=== PATIENT | male | born 1975 | race Caucasian/White ===

== ENCOUNTER 2017-04-29 06:34 | Inpatient (IN) | payer MEDICAID, OTHER ==
[~2017-04-29] VITALS: Ht 175.3 cm; Wt 81.4 kg
[~2017-04-29 06:34] MED LIST: ASEN5TAB6 SL; BACL10TA PO; DIPH50 PO; GABA-318 PO; NICO21T TD; OMEP40CA12 PO
[2017-04-29] MEDS ORDERED: BACL10TA PO (06:51)
[2017-04-29] MEDS ORDERED: OLAN10TA3 PO (06:51)
[2017-04-29 07:34] LABS: BASOPHILS % (AUTO) 0.9 % (0.0-2.0); EOSINOPHILS % (AUTO) 0.3 % (1.0-6.0); HEMATOCRIT 40.2 % (41-53); HEMOGLOBIN 13.9 g/dL (13.5-17.5); LYMPHOCYTES # (AUTO) 0.9 K/uL (1.0-4.8); LYMPHOCYTES % (AUTO) 8.8 % (22.0-44.0); MEAN CORPUSCULAR HEMOGLOBIN 28.9 pg (26.0-34.0); MEAN CORPUSCULAR HGB CONC 34.6 G/dL (31.0-37.0); MEAN CORPUSCULAR VOLUME 84 fL (80-100); MONOCYTES # (AUTO) 0.6 K/uL (0.1-1.0); MONOCYTES % (AUTO) 6.1 % (2.0-9.0); NEUTROPHILS # (AUTO) 8.4 K/uL (1.8-7.7); NEUTROPHILS % (AUTO) 83.9 % (40.0-70.0); PLATELET COUNT (AUTO) 295 K/uL (150-450); RED BLOOD CELL COUNT(AUTO) 4.81 MIL/uL (4.50-5.90); RED CELL DISTRIBUTION WIDTH 14.3 % (11.5-14.5)
[2017-04-29 07:57] LABS: ANION GAP 15 mmol/L (8-16); CALCIUM, TOTAL 8.8 mg/dL (8.8-10.5); CARBON DIOXIDE 23 mmol/L (22-29); CHLORIDE 101 mmol/L (98-107); CREATININE 0.86 mg/dL (0.60-1.30); GLOMERULAR FILTR. RATE CALC > 60 mL/min (>60); GLUCOSE,RANDOM 90 mg/dL (70-110); POTASSIUM 3.1 mmol/L (3.5-5.1); SODIUM SERUM 139 mmol/L (136-145); UREA NITROGEN, BLOOD 12 mg/dL (7-18)
[2017-04-29] MEDS ORDERED: HALOPERIDOL LACTATE 5 MG/ML VIAL IM ONE (08:00)
[2017-04-29] MEDS ORDERED: DiphenhydrAMINE HCL 50 MG/ML VIAL IM ONE (08:00)
[2017-04-29] MEDS ORDERED: LORazepam 2 MG/ML VIAL IVP ONE (08:00)
[2017-04-29 08:03] LABS: ALANINE AMINOTRANSFERASE 145 U/L (12-78); ALKALINE PHOSPHATASE 88 U/L (46-116); ASPARTATE AMINOTRANSFERASE 61 U/L (15-37); BILIRUBIN,TOTAL 0.9 mg/dL (0.1-1.0)
[2017-04-29] MEDS ORDERED: LORazepam 2 MG/ML VIAL IM ONE (08:15)
[2017-04-29 08:39] LABS: CHOL/HDL RATIO 3.1 (4.2-7.3); CHOLESTEROL 185 mg/dL (131-200); HDL CHOLESTEROL 59 mg/dL (40-60); LDL CHOL (CALC.) 119 mg/dL (0-130); TRIGLYCERIDES 34 mg/dL (15-150)
[2017-04-29 08:40] LABS: FREE T4 (FREE THYROXINE) 1.58 ng/dL (0.76-1.46); THYROID STIMULATING HORMONE 0.46 uIU/mL (0.36-3.74)
[2017-04-29] MEDS ORDERED: POTASSIUM CHLORIDE 20 MEQ ER TABLET PO ONE (12:00)
[2017-04-29 13:59] VITALS: BP 148/78
[2017-04-29] MEDS ORDERED: POTASSIUM CHLORIDE 10% 40 MEQ/30 ML LIQUID UDCUP PO ONE (14:00)
[2017-04-29] MEDS ORDERED: ONDANSETRON HCL 4 MG TABLET PO PRN (17:30)
[2017-04-29] MEDS ORDERED: CloNIDine HCL 0.1 MG TABLET PO PRN (17:30)
[2017-04-29] MEDS ORDERED: PETROLATUM,WHITE 71 GM JELLY TP PRN (17:30)
[2017-04-29] MEDS ORDERED: MAG HYDROX/AL HYDROX/SIMETH ES 30 ML SUSPENSION UDCUP PO PRN (17:30)
[2017-04-29] MEDS ORDERED: ALBUTEROL SULFATE HFA 90 MCG/PUFF 8 GM INHALER IH PRN (17:30)
[2017-04-29] MEDS ORDERED: BACITRACIN 28.4 GM OINTMENT TP PRN (17:30)
[2017-04-29] MEDS ORDERED: BENZOCAINE/MENTHOL LOZENGE MM PRN (17:30)
[2017-04-29] MEDS ORDERED: MAGNESIUM HYDROXIDE SUSPENSION 30 ML UDCUP PO PRN (17:30)
[2017-04-29] MEDS ORDERED: LOPERAMIDE HCL 2 MG CAPSULE PO PRN (17:30)
[2017-04-29] MEDS ORDERED: ACETAMINOPHEN 325 MG TABLET PO PRN (17:30)
[2017-04-29 18:40] VITALS: BP 131/64
[2017-04-29] MEDS: IBUPROFEN 600 MG TABLET PO PRN (19:40)
[2017-04-29] MEDS: HALOPERIDOL 5 MG TABLET PO PRN (19:40)
[2017-04-29] MEDS: LORazepam 2 MG TABLET PO PRN (19:40)
[2017-04-30] MEDS: ZOLPIDEM TARTRATE 10 MG TABLET PO PRN ×2 (02:45→21:17)
[2017-04-30 03:02] VITALS: BP 117/69
[2017-04-30 08:12] VITALS: BP 131/70
[2017-04-30 08:26] LABS: ANION GAP 13 mmol/L (8-16); CALCIUM, TOTAL 8.7 mg/dL (8.8-10.5); CARBON DIOXIDE 24 mmol/L (22-29); CHLORIDE 101 mmol/L (98-107); CREATININE 0.76 mg/dL (0.60-1.30); GLOMERULAR FILTR. RATE CALC > 60 mL/min (>60); GLUCOSE,RANDOM 80 mg/dL (70-110); POTASSIUM 3.7 mmol/L (3.5-5.1); SODIUM SERUM 138 mmol/L (136-145); UREA NITROGEN, BLOOD 15 mg/dL (7-18)
[2017-04-30] MEDS: OMEPRAZOLE 20 MG CAPSULE PO SCH (08:46)
[2017-04-30] MEDS: DOCUSATE SODIUM 100 MG CAPSULE PO SCH (08:46)
[2017-04-30] MEDS: NICOTINE 21 MG/24 HOUR PATCH TD SCH (08:46)
[2017-04-30] MEDS: HALOPERIDOL 5 MG TABLET PO PRN ×2 (08:46→16:21)
[2017-04-30] MEDS: LORazepam 2 MG TABLET PO PRN ×2 (08:46→16:21)
[2017-04-30] MEDS: IBUPROFEN 600 MG TABLET PO PRN (09:05)
[2017-04-30] MEDS: OLANZapine 10 MG TABLET PO SCH (21:17)
[2017-05-01 06:49] VITALS: BP 119/70
[2017-05-01 08:25] VITALS: BP 113/62
[2017-05-01] MEDS: NICOTINE 21 MG/24 HOUR PATCH TD SCH (08:25)
[2017-05-01] MEDS: DOCUSATE SODIUM 100 MG CAPSULE PO SCH (08:25)
[2017-05-01] MEDS: OMEPRAZOLE 20 MG CAPSULE PO SCH (08:25)
[2017-05-01] MEDS: IBUPROFEN 600 MG TABLET PO PRN (08:25)
[2017-05-01 09:25] VITALS: BP 118/99
[2017-05-01] MEDS: GABAPENTIN 400 MG CAPSULE PO SCH ×3 (10:12→16:22)
[2017-05-01 10:25] VITALS: BP 118/72
[2017-05-01] MEDS: LORazepam 2 MG TABLET PO PRN (16:22)
[2017-05-01 16:34] VITALS: BP 116/77
[2017-05-01] MEDS: OLANZapine 10 MG TABLET PO SCH (20:03)
[2017-05-01] MEDS: LevETIRAcetam 500 MG TABLET PO SCH (20:04)
[2017-05-01] MEDS: ZOLPIDEM TARTRATE 10 MG TABLET PO PRN (20:04)
[2017-05-02 06:51] VITALS: BP 107/69
[2017-05-02 08:13] VITALS: BP 108/65
[2017-05-02] MEDS: NICOTINE 21 MG/24 HOUR PATCH TD SCH (09:00)
[2017-05-02] MEDS: DOCUSATE SODIUM 100 MG CAPSULE PO SCH (09:01)
[2017-05-02] MEDS: OMEPRAZOLE 20 MG CAPSULE PO SCH (09:01)
[2017-05-02] MEDS: GABAPENTIN 100 MG CAPSULE PO SCH ×3 (09:01→16:04)
[2017-05-02] MEDS: GABAPENTIN 400 MG CAPSULE PO SCH ×3 (09:01→16:03)
[2017-05-02] MEDS: LevETIRAcetam 500 MG TABLET PO SCH ×2 (09:01→16:04)
[2017-05-02 16:00] VITALS: BP 140/70
[2017-05-02] MEDS: LORazepam 2 MG TABLET PO PRN (16:13)
[2017-05-02] MEDS: ZOLPIDEM TARTRATE 10 MG TABLET PO PRN (20:37)
[2017-05-02] MEDS: OLANZapine 10 MG TABLET PO SCH (20:37)
[2017-05-02] MEDS ORDERED: OLANZapine 7.5 MG TABLET PO SCH (21:00)
[2017-05-03 02:00] VITALS: BP 114/60
[2017-05-03 07:10] VITALS: BP 115/64
[2017-05-03 08:23] VITALS: BP 107/64
[2017-05-03] MEDS: GABAPENTIN 400 MG CAPSULE PO SCH ×3 (08:48→17:02)
[2017-05-03] MEDS: LevETIRAcetam 500 MG TABLET PO SCH ×2 (08:48→17:02)
[2017-05-03] MEDS: OMEPRAZOLE 20 MG CAPSULE PO SCH (08:48)
[2017-05-03] MEDS: DOCUSATE SODIUM 100 MG CAPSULE PO SCH (08:48)
[2017-05-03] MEDS: GABAPENTIN 100 MG CAPSULE PO SCH ×3 (08:48→17:02)
[2017-05-03] MEDS: NICOTINE 21 MG/24 HOUR PATCH TD SCH (08:48)
[2017-05-03] MEDS: OLANZapine 10 MG TABLET PO SCH ×2 (08:49→20:24)
[2017-05-03 11:51] VITALS: BP 119/70
[2017-05-03] MEDS: IBUPROFEN 600 MG TABLET PO PRN (11:55)
[2017-05-03 12:56] VITALS: BP 114/68
[2017-05-03 16:10] VITALS: BP 112/64
[2017-05-03] MEDS: LORazepam 2 MG TABLET PO PRN (17:02)
[2017-05-04 01:35] VITALS: BP 118/69
[2017-05-04 08:00] VITALS: BP 137/74
[2017-05-04] MEDS: NICOTINE 21 MG/24 HOUR PATCH TD SCH (08:44)
[2017-05-04] MEDS: GABAPENTIN 400 MG CAPSULE PO SCH ×3 (08:45→16:34)
[2017-05-04] MEDS: OMEPRAZOLE 20 MG CAPSULE PO SCH (08:45)
[2017-05-04] MEDS: OLANZapine 10 MG TABLET PO SCH ×2 (08:45→20:39)
[2017-05-04] MEDS: LevETIRAcetam 500 MG TABLET PO SCH ×2 (08:45→16:35)
[2017-05-04] MEDS: DOCUSATE SODIUM 100 MG CAPSULE PO SCH (08:45)
[2017-05-04] MEDS: GABAPENTIN 100 MG CAPSULE PO SCH ×3 (08:45→16:35)
[2017-05-04 12:30] VITALS: BP 128/70
[2017-05-04] MEDS: LORazepam 2 MG TABLET PO PRN ×2 (12:33→16:35)
[2017-05-04] MEDS: IBUPROFEN 600 MG TABLET PO PRN ×2 (12:34→20:39)
[2017-05-04 13:34] VITALS: BP 122/68
[2017-05-04 16:00] VITALS: BP 128/70
[2017-05-04] MEDS: ZOLPIDEM TARTRATE 10 MG TABLET PO PRN (20:39)
[2017-05-05 05:38] VITALS: BP 122/72
[2017-05-05 08:11] VITALS: BP 112/64
[2017-05-05] MEDS: NICOTINE 21 MG/24 HOUR PATCH TD SCH (08:38)
[2017-05-05] MEDS: DOCUSATE SODIUM 100 MG CAPSULE PO SCH (08:38)
[2017-05-05] MEDS: OLANZapine 10 MG TABLET PO SCH (08:38)
[2017-05-05] MEDS: GABAPENTIN 100 MG CAPSULE PO SCH ×3 (08:38→16:37)
[2017-05-05] MEDS: OMEPRAZOLE 20 MG CAPSULE PO SCH (08:38)
[2017-05-05] MEDS: GABAPENTIN 400 MG CAPSULE PO SCH ×3 (08:39→16:37)
[2017-05-05] MEDS: LORazepam 2 MG TABLET PO PRN ×2 (08:39→13:56)
[2017-05-05] MEDS: LevETIRAcetam 500 MG TABLET PO SCH ×2 (08:39→16:37)
[2017-05-05] MEDS ORDERED: OLAN10TA3 PO (14:12)
[2017-05-05] MEDS ORDERED: DSS100 PO (14:13)
[2017-05-05] MEDS ORDERED: LEVE250T55 PO (14:14)
[2017-05-05] MEDS ORDERED: GABA-531 PO (14:15)
== END 2017-05-05 18:59 | disposition home or self-care (01) | DRG 753 ==
LOC: EMS 06:36 → B3A 09:33
DX: F31.5 Bipolar disorder, current episode depressed, severe, with psychotic features (principal); G40.409 Other generalized epilepsy and epileptic syndromes, not intractable, without status epilepticus; F15.10 Other stimulant abuse, uncomplicated; E87.6 Hypokalemia; F17.200 Nicotine dependence, unspecified, uncomplicated; F43.10 Post-traumatic stress disorder, unspecified; J44.9 Chronic obstructive pulmonary disease, unspecified; K21.9 Gastro-esophageal reflux disease without esophagitis; M54.5 Low back pain; Z71.6 Tobacco abuse counseling; Z88.5 Allergy status to narcotic agent; Z79.899 Other long term (current) drug therapy; Z71.51 Drug abuse counseling and surveillance of drug abuser
CPT/HCPCS: 80074; 84439; 84443; 96372; 99285; G0480; J1200; J1630; J2060

== ENCOUNTER 2017-08-13 21:05 | Emergency (ER) | payer MEDICAID, OTHER ==
[~2017-08-13] VITALS: Ht 177.8 cm; Wt 80.0 kg
[~2017-08-13 21:05] MED LIST changes: -ASEN5TAB6 SL; -BACL10TA PO; -DIPH50 PO; +DSS100 PO; -GABA-318 PO; +GABA-531 PO; +LEVE250T55 PO; -NICO21T TD; +OLAN10TA3 PO
[2017-08-13] MEDS ORDERED: PRAZ2CAP2 PO (22:48)
[2017-08-13 22:51] VITALS: BP 138/87
[2017-08-13] MEDS ORDERED: LevETIRAcetam 250 MG TABLET PO ONE (23:00)
== END 2017-08-13 23:45 | disposition home or self-care (01) ==
LOC: EMS 21:06
DX: G40.909 Epilepsy, unspecified, not intractable, without status epilepticus (principal); K21.9 Gastro-esophageal reflux disease without esophagitis; F17.210 Nicotine dependence, cigarettes, uncomplicated; Z88.5 Allergy status to narcotic agent
CPT/HCPCS: 99283

== ENCOUNTER 2017-09-28 17:56 | Emergency (ER) | payer OTHER ==
[~2017-09-28] VITALS: Ht 175.3 cm; Wt 86.4 kg
[~2017-09-28 17:56] MED LIST changes: -LEVE250T55 PO; +PRAZ2CAP2 PO
[2017-09-28 19:06] LABS: BASOPHILS % (AUTO) 0.5 % (0.0-2.0); EOSINOPHILS % (AUTO) 2.3 % (1.0-6.0); HEMATOCRIT 43.9 % (41-53); HEMOGLOBIN 15.1 g/dL (13.5-17.5); LYMPHOCYTES # (AUTO) 1.8 K/uL (1.0-4.8); MEAN CORPUSCULAR HEMOGLOBIN 29.6 pg (26.0-34.0); MEAN CORPUSCULAR HGB CONC 34.4 G/dL (31.0-37.0); MEAN CORPUSCULAR VOLUME 86 fL (80-100); MONOCYTES # (AUTO) 0.7 K/uL (0.1-1.0); MONOCYTES % (AUTO) 6.1 % (2.0-9.0); NEUTROPHILS # (AUTO) 8.1 K/uL (1.8-7.7); NEUTROPHILS % (AUTO) 74.1 % (40.0-70.0); PLATELET COUNT (AUTO) 371 K/uL (150-450)
[2017-09-28 19:14] LABS: ANION GAP 13 mmol/L (8-16); CALCIUM, TOTAL 10.2 mg/dL (8.8-10.5); CARBON DIOXIDE 27 mmol/L (22-29); CHLORIDE 98 mmol/L (98-107); CREATININE 1.06 mg/dL (0.60-1.30); GLOMERULAR FILTR. RATE CALC > 60 mL/min (>60); GLUCOSE,RANDOM 95 mg/dL (70-110); POTASSIUM 3.5 mmol/L (3.5-5.1); SODIUM SERUM 138 mmol/L (136-145); UREA NITROGEN, BLOOD 16 mg/dL (7-18)
[2017-09-28 19:20] LABS: ALANINE AMINOTRANSFERASE 327 U/L (12-78); ALBUMIN 4.4 g/dL (3.4-5.0); ALKALINE PHOSPHATASE 83 U/L (46-116); ASPARTATE AMINOTRANSFERASE 221 U/L (15-37); BILIRUBIN,TOTAL 0.7 mg/dL (0.1-1.0); TOTAL PROTEIN, SERUM 8.3 g/dL (6.4-8.2)
[2017-09-28] MEDS ORDERED: OLANZapine 5 MG TABLET PO ONE (21:00)
[2017-09-28] MEDS ORDERED: LORazepam 2 MG TABLET PO ONE (21:00)
[2017-09-28] MEDS ORDERED: DiphenhydrAMINE HCL 50 MG CAPSULE PO ONE (21:15)
[2017-09-28 21:52] LABS: AMPHET/METH SCREEN,URINE POSITIVE (NEGATIVE); BARBITURATE SCREEN, URINE NEGATIVE (NEGATIVE); BENZODIAZEPINES SCREEN,URINE NEGATIVE (NEGATIVE); CANNABINOID SCREEN,URINE NEGATIVE (NEGATIVE); COCAINE SCREEN,URINE NEGATIVE (NEGATIVE); METHADONE SCREEN, URINE NEGATIVE (NEGATIVE); OPIATE SCREEN,URINE NEGATIVE (NEGATIVE); PHENCYCLIDINE SCREEN,URINE NEGATIVE (NEGATIVE)
[2017-09-28] MEDS ORDERED: LORazepam 2 MG TABLET PO PRN (22:00)
[2017-09-28] MEDS ORDERED: ZOLPIDEM TARTRATE 10 MG TABLET PO PRN (22:00)
[2017-09-28] MEDS ORDERED: OLANZapine 5 MG RAPDIS TABLET PO PRN (22:00)
[2017-09-28 22:45] LABS: APPEARANCE,URINE CLEAR (CLEAR); BILIRUBIN,URINE NEGATIVE (NEGATIVE); GLUCOSE, URINE (UA) NEGATIVE (NEGATIVE); KETONES,URINE NEGATIVE (NEGATIVE); LEUKOCYTE ESTERASE ,URINE NEGATIVE (NEGATIVE); NITRATE,URINE NEGATIVE (NEGATIVE); OCCULT BLOOD,URINE TRACE (NEGATIVE); PH,URINE 5.5 (5.0-8.0); PROTEIN,URINE NEGATIVE (NEGATIVE); UROBILINOGEN,URINE 0.2 mg/dL (<=1.0)
[2017-09-28 22:51] LABS: BACTERIA,URINE Rare /HPF (None Seen); SQUAMOUS EPITHELIAL CELL,UR Few /LPF (None Seen)
[2017-09-29 03:32] LABS: CHOL/HDL RATIO 6.7 (4.2-7.3); CHOLESTEROL 280 mg/dL (131-200); HDL CHOLESTEROL 42 mg/dL (40-60); LDL CHOL (CALC.) 218 mg/dL (0-130); TRIGLYCERIDES 100 mg/dL (15-150)
[2017-09-29 10:37] VITALS: BP 166/87
== END 2017-09-29 10:44 | disposition home or self-care (01) ==
LOC: EMS 17:57
DX: F31.9 Bipolar disorder, unspecified (principal); F15.10 Other stimulant abuse, uncomplicated; I25.2 Old myocardial infarction; K21.9 Gastro-esophageal reflux disease without esophagitis; F17.210 Nicotine dependence, cigarettes, uncomplicated; Z88.5 Allergy status to narcotic agent; Z88.8 Allergy status to other drugs, medicaments and biological substances
CPT/HCPCS: 36415; 80053; 80061; 80307; 81001; 85025; 99284; 99406; G0480